=== PATIENT | female | born 1940 | race African-American/Black ===

== ENCOUNTER 2017-09-13 05:31 | Day surgery (SDC) | payer OTHER ==
[~2017-09-13] VITALS: Ht 149.9 cm; Wt 54.0 kg
--- NOTE | ~2017-09-13 | O ---
[facility] [place] [address] OPERATIVE REPORT Name: WONG SANTANA Room #: 150-1 [facility] M.R.#: [id number] Admission: 09/13/17 Attend Phys: Lucian Kraft MD Discharge: Date of : 40 Report #: [id number] THIS REPORT FOR: //name// CC: Frank Kraft DATE OF SERVICE: 09/13/2017 CLOTH DYEING RANGE TENDER: None. PREOPERATIVE DIAGNOSIS: Right lower lid ectropion. POSTOPERATIVE DIAGNOSIS: Right lower lid ectropion. OPERATION PERFORMED: Right lower lid ectropion repair. ANESTHESIA: Local with IV sedation. COMPLICATIONS: None. 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 The current procedure is undertaken in order to improve the patient's visual function, lacrimal outflow and level of comfort. Informed consent was obtained to include but not limited to the risk of loss of vision, bleeding, infection, scarring, failure to improve the problem and need for further surgery. DESCRIPTION OF OPERATION: The patient was taken to the operating room, where 2% Xylocaine with epinephrine mixed with equal parts of 0.75% Marcaine with Wydase was administered transcutaneously and transconjunctivally to the lower lid and lateral canthal area. The patient was then prepped and draped in the usual sterile fashion. A Tyler clamp was then used to clamp the lateral canthus, following which a sharp canthotomy and cantholysis were performed. The tarsal strip was prepared laterally, removing the lash-bearing portion of the redundant lid margin and the redundant tarsal plate. Hemostasis was achieved with a monopolar cautery, as it was throughout the case. The tarsal strip was then secured to the internal portion of the lateral orbital tubercle with 2 interrupted 5-0 Prolene sutures. The lateral canthal angle was sharply reformed as the subcutaneous structures and the skin were closed with multiple interrupted 6-0 plain gut sutures. The wound was cleaned and dressed with ophthalmic antibiotic ointment. The [address] [address] OPERATIVE REPORT Name: WONG SANTANA Room #: 150-1 [facility] M.R.#: [id number] Admission: 09/13/17 Attend Phys: Lucian Kraft MD Discharge: Date of : 40 Report #: [id number] patient was then transported to the recovery area, having tolerated the procedure well with no anesthetic or operative complications being noted. By: [id number] Lucian Kraft MD /nt
--- NOTE | ~2017-09-13 | EKG ---
[place] [address] [address] [facility] [place] [address] ELECTROCARDIOGRAM REPORT Name: WONG SANTANA Room #: DEP [facility].#: [id number] Admission: 09/13/17 Attend Phys: Lucian Kraft MD Discharge: 09/13/17 Date of : 40 Report #: [id number] THIS REPORT FOR: //name// [facility] Test Date: 2017-09-13 Test Time: 08:54:39 Pat Name: WONG SANTANA Department: Room: 150 1 Gender: F Dinking Machine Operator: Dorothea MUNOZ : 1940 Requested By: Yodit Man Order Number: [id number] MD: Calvin Manuel Measurements Intervals [place] Rate: 56 P: 28 [place]: 140 QRS: 25 QRSD: 92 T: 6 QT: 454 QTc: 439 Interpretive Statements Sinus bradycardia Low voltage, precordial leads Abnormal R-wave progression, early transition Compared to ECG 12/08/2015 07:31:06 No significant change was found Electronically Signed On 09-13-2017 16:51:22 CDT by Calvin Manuel [email or web address] <ELECTRONICALLY SIGNED> By: Calvin Manuel MD, [facility] 09/13/17 1651 0854 0854 Calvin Manuel MD, [facility] /EPI
[~2017-09-13 05:31] MED LIST: ALENDRONATE SOD70 MG PO; ALPHAGAN P15 ML OP; BENTYL 10 MG CA10 M1 PO; CLARITIN10 MG PO; LEVOTHYROXIN0.075 MG PO; LEVOTHYROXINE50 MCG PO; LINZESS145 MCG PO; LINZESS72 MCG PO; LISINOPRIL-HCT1 EACH PO; LUMIGAN2.5 M1 OP; OMEPRAZOLE40 MG PO; POTASSIUM20 PO; PRAVASTATIN SOD10 MG PO; VENTOLIN HFA 1818 GM INH; ZANTAC 150MG T150 MG PO
[2017-09-13 08:27] VITALS: BP 108/72
== END 2017-09-13 11:10 | disposition home or self-care (01) ==
LOC: OR 05:31 → TBA 05:32 → OR 11:09
DX: H02.102 Unspecified ectropion of right lower eyelid (principal); I10 Essential (primary) hypertension; E78.5 Hyperlipidemia, unspecified; Z86.73 Personal history of transient ischemic attack (TIA), and cerebral infarction without residual deficits; Z85.3 Personal history of malignant neoplasm of breast; Z85.850 Personal history of malignant neoplasm of thyroid; Z85.840 Personal history of malignant neoplasm of eye; Z98.890 Other specified postprocedural states; Z79.899 Other long term (current) drug therapy; Z87.891 Personal history of nicotine dependence; Z88.0 Allergy status to penicillin; Z88.2 Allergy status to sulfonamides; Z88.6 Allergy status to analgesic agent
CPT/HCPCS: 50010; 50101; 50386; 50398; 51636; 56527; 56531; 62110; 62850; 70005

== ENCOUNTER 2018-01-17 05:28 | Day surgery (SDC) | payer OTHER ==
[~2018-01-17] VITALS: Ht 149.9 cm; Wt 54.4 kg
--- NOTE | ~2018-01-17 | O ---
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 PROCEDURE: Enucleation of right eye with implantation of 18 mm Medpor sphere with muscles attached to implant, conjunctivoplasty, temporary tarsorrhaphy. SURGEON: Lucian Kraft MD MIGRATORY FARM HAND: None. ANESTHESIA: General. COMPLICATIONS: None. INDICATIONS FOR SURGERY: This pleasant 77-year-old woman has a blind right eye that is chronically painful with no hope of recoverable vision. She presents today for removal of the right eye with reconstruction of the orbit, sufficient to allow her to wear prosthesis. Informed consent was obtained to include but not limited to the potential risk for bleeding, infection, and the need for further treatment or surgery. DESCRIPTION OF PROCEDURE: The patient was taken to the operating room where general anesthesia was administered. The right socket was then anesthetized with Xylocaine with epinephrine mixed with Marcaine and Wydase. The eyelid margin was anesthetized with the same anesthetic mixture. The patient was subsequently prepped and draped in the usual sterile fashion. She received intravenous antibiotics and antiemetics at the beginning of the case. A lid speculum was placed in the right eye, following which a 360-degree conjunctival peritomy was performed as best possible. This was limited to some degree from scarring from prior pathology. The inferior medial quadrant was then bluntly dissected in the medial rectus muscle identified as best possible on a muscle hook. It was then cleaned of its surrounding connective tissue, which made it a little bit more visible. The insertion of the rectus muscle into the sclerae then was passed with a 5-0 Vicryl suture with locking bites at each margin. The muscle was then detached from the sclera and drawn out of the [facility] [address] [place] [address] OPERATIVE REPORT Name: WONG SANTANA Room #: DEP [facility] M.R.#: [id number] Admission: 01/17/18 Attend Phys: Lucian Kraft MD Discharge: 01/17/18 Date of : 40 Report #: [id number] field with a [place]. The inferior lateral and superior rectus muscles were similarly isolated and drawn out of the field. The superior and inferior oblique muscles were amputated where they attached to the globe. The optic nerve was then clamped with a hemostat for 3 minutes. This was released and reclamped for 3 more minutes. It was released one final time and clamped for 2 minutes. The optic nerve was then cut with an enucleation scissor, following which a fluid release was seen posteriorly. 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 This tissue was found in the orbit and it was cut free with a [place] needle. It was passed off the field with the globe. Hemostasis having been achieved, a 20-mm sizing sphere fit in the socket, the decision was made to use a 18 mm implant in order to limit the risk for future exposure. An 18 mm Medpor sphere was then vacuum-aspirated in antibiotic irrigation solution and subsequently reposited behind posterior tenons with the aid of an easy glide introducer. Posterior tenons were then closed over the implant with interrupted 5-0 Vicryl sutures. The muscles were then attached to the implant, drawing the medial and lateral rectus muscles up first and then the superior and inferior rectus muscles. Anterior tenons were then closed with interrupted 5-0 Vicryl sutures. The conjunctiva was undermined sufficiently to allow conjunctivoplasty to be performed. The conjunctival closure was oriented in an oblique fashion, so as to not have two layers of suture on top of each other. The conjunctivoplasty was closed with 6-0 Vicryl sutures. A medium conformer was placed in the socket, followed by erythromycin. Temporary tarsorrhaphy was then fashioned from a short section of IV tubing and a double arm pass with 5-0 nylon suture. The wound was then dressed with Telfa pad, followed by 2 eye pads, which were held in place with silk tape and Mastisol. The patient was subsequently transported to the recovery area having tolerated the procedures well with no anesthetic or operative complications being noted. <ELECTRONICALLY SIGNED> By: Lucian Kraft MD 01/21/18 0617 0907 0938 Lucian Kraft MD /nt
--- NOTE | ~2018-01-17 | PATH ---
[facility] [address] [place] [address] PATHOLOGY RPT PROCEDURE Name: [address] Room #: DEP [facility] M.R.#: [id number] Admission: 01/17/18 Date of : 40 Discharge: 01/17/18 Report #: [id number] Path Case #: [id number] [facility] Accession Number: [id number] . 01 Material submitted: . RIGHT EYE . 01 Clinical history: . Right eye, blind, painful . 02 Diagnosis: Right eye, enucleation: - Fibrosis and scarring of the conjunctiva as well as the cornea, history of blind painful eye. (IUV:robson; 01/18/2018) QMS/01/18/2018 . 02 Electronically signed: . Deedee Escobedo MD, Pathologist NPI- [id number] . 01 Gross description: . The specimen is received in formalin, labeled "[address], right eye". Received is an enucleation specimen measuring 2.4 x 2.4 x 2.4 cm in greatest dimensions. The posterior aspect of the specimen is disrupted with a circular defect measuring 0.9 x 0.9 cm. The optic nerve is not grossly identified. The cornea is cloudy and dome-shaped measuring 0.8 x 0.8 cm. There is a suture present along one aspect of the specimen, however, orientation is not provided. Sectioning reveals choroid layer to be light brown to white-hudson and smooth in appearance with no grossly distinct lesions. The lens is absent. The vitreous chamber has a slight amount of clear gelatinous material present. A airport representative cross section through the sutured area submitted in cassette A1. Additional airport representative section through the defect on the posterior aspect of the specimen is submitted in cassette A2. (CAA; 01/17/2018) QAC/QAC . 02 Pathologist provided ICD-10: H11.241, H17.9, H57.11 . 02 CPT . 068827 Specimen Comment: A courtesy copy of this report has been sent to Specimen Comment: [phone], . Specimen Comment: Report sent to / DR DOMINGUEZ Specimen Comment: A duplicate report has [place] [address] PATHOLOGY RPT PROCEDURE Name: [address] Room #: DEP [facility] M.R.#: [id number] Admission: 01/17/18 Date of : 40 Discharge: 01/17/18 Report #: [id number] Path Case #: [id number] updates. Performed at: 01 [facility] Sheila Cha [address] [facility] [address], [place], [place] [id number] MD Arsalan Multani MD Phone: [phone] Performed at: [address] [id number] MD Deedee Escobedo MD Phone: [phone]
[~2018-01-17 05:28] MED LIST changes: +VITAMIN B-12500 MCG PO; +VITAMIN D35000 UNIT PO
[2018-01-17 07:02] LABS: CALCIUM 8.6 mg/dL (8.5-10.1); CREATININE 1.2 mg/dL (0.6-1.0); POTASSIUM 3.9 mmol/L (3.5-5.1)
[2018-01-17 07:53] VITALS: BP 101/61
== END 2018-01-17 10:25 | disposition home or self-care (01) ==
LOC: TBA 05:28 → OR 05:28
PROVIDERS: Ophthalmology
DX: H54.40 Blindness, one eye, unspecified eye (principal); H11.241 Scarring of conjunctiva, right eye; I10 Essential (primary) hypertension; E78.5 Hyperlipidemia, unspecified; Z88.0 Allergy status to penicillin; Z88.2 Allergy status to sulfonamides; Z88.8 Allergy status to other drugs, medicaments and biological substances; Z79.899 Other long term (current) drug therapy; Z87.891 Personal history of nicotine dependence; Z85.3 Personal history of malignant neoplasm of breast; Z98.890 Other specified postprocedural states; Z85.850 Personal history of malignant neoplasm of thyroid
CPT/HCPCS: 50010; 50101; 50386; 50398; 51636; 51854; 53500; 56527; 56528; 56531; 62110; 62900; 70005

== ENCOUNTER → 2020-05-03 | Outpatient (CLI) | payer OTHER ==
[~2020-05-03] MED LIST changes: +LEVOTHYROXINE75 MCG PO
== END ==
LOC: LAB 10:22
PROVIDERS: ATTEND Ophthalmology
DX: Z01.812 Encounter for preprocedural laboratory examination (principal); Z20.822 Contact with and (suspected) exposure to COVID-19

== ENCOUNTER 2020-05-06 06:07 | Day surgery (SDC) | payer OTHER ==
[~2020-05-06] VITALS: Ht 149.9 cm; Wt 56.7 kg
[2020-05-06 07:30] VITALS: BP 134/78
--- NOTE | 2020-05-10 06:16 | O ---
[facility] [address] OPERATIVE REPORT Name: WONG SANTANA Room #: DEP [facility] M.R.#: [id number] Admission: 05/06/20 Attend Phys: Lucian Kraft MD Discharge: 05/06/20 Date of : 40 Report #: [id number] THIS REPORT FOR: cc: Frank Oleary MD,Frank Kraft,Lucian Velazco MD ~ DATE OF SERVICE: 05/06/2020 PREOPERATIVE DIAGNOSIS: Left orbital inclusion cyst. POSTOPERATIVE DIAGNOSIS: Left orbital inclusion cyst, migrated Minh implant. PROCEDURE: Left transconjunctival orbitotomy with conjunctivoplasty repair of defect. SURGEON: Lucian Kraft MD FINISHER DENTURE: None. ANESTHESIA: MAC. COMPLICATIONS: None. INDICATIONS FOR SURGERY: This pleasant 79-year-old woman has bilateral blindness. In her left socket, she has experienced progressive discomfort that appears to be correlated with an enlarging cyst in her central socket. She could not be fit comfortably with the prosthesis at present. She presents today for excision of this cyst with reconstruction of the socket by conjunctivoplasty. Informed consent was obtained to include but not limited to the potential risk for bleeding, infection, failure to improve the problem, and the potential need for further surgery including surgery to remove the prosthesis. DESCRIPTION OF PROCEDURE: The patient was taken to the operating room where 2% Xylocaine with epinephrine mixed with equal parts 0.75% Marcaine with Wydase was administered to the left socket. The patient was subsequently prepped and draped in the usual sterile fashion. A lid speculum was placed on the left side, following which the conjunctival inclusion cyst was inspected. An incision was then made around its base 360 degrees. The dissection was somewhat complicated as the cyst was not completely spherical. It turns out that there was a knuckle of an Minh implant directly below the conjunctival inclusion cyst. The cyst was removed. The conjunctiva superotemporally was then undermined to allow conjunctivoplasty to be accomplished. Hemostasis was then re-achieved. The conjunctival flap was [address] [address] OPERATIVE REPORT Name: WONG SANTANA Room #: DEP [facility]..#: [id number] Admission: 05/06/20 Attend Phys: Lucian Kraft MD Discharge: 05/06/20 Date of : 40 Report #: [id number] then advanced and closed with interrupted 6-0 plain gut sutures. Erythromycin ophthalmic ointment was then placed on the eye followed by medium sized conformer. The patient was then transported to the recovery area having tolerated the procedure well. It is thought that she may benefit at this point from having a new prosthesis fabricated but it is also still possible that she may end up needing to have the orbital implant removed. <ELECTRONICALLY SIGNED> By: Lucian Kraft MD 05/10/20 0616 0841 0857 Lucian Kraft MD /nt
--- NOTE | 2020-05-10 16:06 | PATH ---
[facility] [address] [address] PATHOLOGY RPT PROCEDURE Name: [address] Room #: DEP [facility] M.R.#: [id number] Admission: 05/06/20 Date of : 40 Discharge: 05/06/20 Report #: [id number] Path Case #: [id number] [facility] Accession Number: [id number] . 01 Material submitted: . eyelid - LEFT CONJUNCTIVAL INCLUSION CYST. Modifiers: left . 01 Clinical history: . CONJUCTIVAL CYST . . 02 Diagnosis: Tissue designated as, "left conjunctival inclusion cyst", excision: - Hemangioma associated with focal subepithelial hemorrhage. - Negative for malignancy. - Overlying squamous epithelium showing mild hyperkeratosis as well as reactive changes. - Negative for dysplasia or malignancy. . (IUV:mml; 05/10/2020) QLM 05/10/2020 1415 Local . 02 Electronically signed: . Deedee Escobedo MD, Pathologist NPI- [id number] . 01 Gross description: . Received in formalin, labeled "[address], left conjunctival inclusion cyst" is a hudson-pink disrupted cystic structure measuring 0.6 x 0.4 x 0.2 cm. The specimen is bisected to reveal hudson-pink cut surface. The specimen is entirely submitted in cassette A1.([facility]; 05/07/2020) GZA/GZA 05/07/2020 1105 Local . 02 Pathologist provided ICD-10: D18.09 . 02 CPT . 198702 Specimen Comment: A courtesy copy of this report has been sent to [phone] Specimen Comment: Report sent to Performed at: [address] [id number] MD Gabino Roberts MD Phone: [phone] Performed at: [address] [id number] [address] [address] PATHOLOGY RPT PROCEDURE Name: [address] Room #: DEP [facility] M.[place].#: [id number] Admission: 05/06/20 Date of : 40 Discharge: 05/06/20 Report #: [id number] Path Case #: [id number] MD Deedee Escobedo MD Phone: [phone]
== END 2020-05-06 09:15 | disposition home or self-care (01) ==
LOC: TBA 06:07 → OR 06:07
PROVIDERS: ATTEND Ophthalmology
DX: D18.09 Hemangioma of other sites (principal); T85.398A Other mechanical complication of other ocular prosthetic devices, implants and grafts, initial encounter; I10 Essential (primary) hypertension; E78.5 Hyperlipidemia, unspecified; Z98.890 Other specified postprocedural states; Z79.899 Other long term (current) drug therapy; Z86.73 Personal history of transient ischemic attack (TIA), and cerebral infarction without residual deficits; Z85.3 Personal history of malignant neoplasm of breast; Z85.850 Personal history of malignant neoplasm of thyroid; Z98.0 Intestinal bypass and anastomosis status; Z87.19 Personal history of other diseases of the digestive system; Z88.0 Allergy status to penicillin; Z88.2 Allergy status to sulfonamides; Z88.8 Allergy status to other drugs, medicaments and biological substances; Z87.891 Personal history of nicotine dependence; Y83.8 Other surgical procedures as the cause of abnormal reaction of the patient, or of later complication, without mention of misadventure at the time of the procedure
CPT/HCPCS: 50010; 50101; 50386; 50398; 51636; 51854; 56531; 62110; 62850; 70005